=== PATIENT | male | born 2000 | race Hispanic/Latino ===

== ENCOUNTER 2024-05-19 00:42 | Emergency (ER) | payer OTHER, SELFPAY ==
[2024-05-19 01:01] VITALS: BP 119/72
--- NOTE | 2024-05-19 02:21 | ED.MUSCINJ ---
HPI-Injury
General
Chief Complaint: Musculo-Skeletal Complaint
Source: patient
Exam Limitations: none
Time Seen by Provider: 05/19/24 02:11
Nursing documentation reviewed up to this point in time: agreed with
History of Present Illness-Injury
Is this injury a work related problem?: No
Initial Injury comments:
This is a 24-year-old [id number] male with no significant past medical history who presents with pain proximal aspect of his left long digit when he inadvertently injured his finger 1 week ago while playing football. He admits to initially
moderate swelling and some bruising about the MCP joint of his long digit that has slowly improved.
He denies weakness or numbness.
No history of previous injuries to this finger.
Pain is worse with movement, improves with keeping his finger still.
Past History
Past History
ED Past Medical History: None
ED Past Surgical History: Urological (Testicular torsion)
Social History
Tobacco: Non-smoker
Personal: Single
Living: with family
Employment: Employed
Family History
Family History: Other (Noncontributory)
Musculoskeletal Injury Exam
Musculoskeletal Injury Exam
Left Proximal Third Finger:
Pain with Movement?: Mild
Tender to palpation?: Moderate
Soft tissue swelling?: Mild
External deformity and angulation?: None
Joint effusion?: None
Contusion?: Mild
Hematoma-local bleeding into tissue?: Mild
Strain- Sprain- Tear (Connective tissue injury)?: None
Crepitus with movement?: No
Joint instability?: No
Malalignment/deformity?: No
Range of motion: Limited (Mildly limited flexion at MCP joint related to pain.)
Distal skin color and temperature: normal-warm & good color
Capillary Refill: normal
Normal distal neurovascular exam?: Yes
Phy Exam
Physical Exam
Physical Exam:
PHYSICAL EXAMINATION:
General: 24-year-old male appears his stated age, bright and alert, pleasant, appears in no acute distress. Easily communicative.
Neuro: alert and oriented. no focal neurological deficits
Psychiatric: well kept. interactive and cooperative
Musculoskeletal: [Moderate tenderness about the MCP joint left third digit. Mild soft tissue swelling and minimal/resolving ecchymosis. Mildly restricted flexion at MCP joint related to pain. There is no tenderness to the
hand nor wrist. Peripheral pulses are full and equal bilaterally. Distal sensation and strength intact.]
Injury Course
Orders/Labs/Results
Orders:
Orders
05/19/24 01:04
Finger(s)/Thumb 2 View Lt [CR Finger(s)/thumb Min 2 Vw Lt] Urgent
Comment:
Reason For Exam: injury to mid finger playing football
Indicate Which Finger:: Middle Finger
05/19/24 02:21
Splints/Slings/Crut- Treatment ONCE
Crutches: No
Location: Left
Type of Splint: Volar
MDM/Problems Addressed
Differential Diagnosis Includes:
Concern for sprain versus fracture.
X-ray shows tiny nondisplaced fracture at the base of the proximal phalanx of the left long digit.
Will place in volar splint.
Will prescribe ibuprofen as needed for pain.
Will refer to orthopedics for follow-up.
*Radiology
Radiology exam reviewed: preliminary read by ED provider (X-ray shows nondisplaced fracture base of the proximal phalanx left long digit.)
*Pulse Oximetry
Patient hypoxic: no
*Critical Care Note
Total Time (30-74mins, 75-104mins- exclusive of procedures): Not Applicable
ED Attending Note
-
Portions of this chart may have been created with voice recognition software.� Occasional wrong word or��sound alike� substitutions may have occurred due to the inherent limitations of voice recognition software.
Discharge Plan
Departure
Patient Disposition: Home (Routine Discharge)
Date of Disposition: 05/19/24
Time of Disposition: 02:26
Patient with high blood pressure during this ER visit?: No
Condition: Good
Discharge Problem:
Finger fracture, left
Instructions: Finger Fracture ED, How to care for a splint
Prescriptions:
New
ibuprofen 600 mg tablet
600 mg PO QID PRN (Reason: fever or pain) Qty: 20 0RF
Referrals:
Ramsey Bustamante MD [Active] - Call in 1-3 days for appt
Interventions
Interventions:
*Risk Screen - Suicide Last Done: 05/19/24 01:01
*General Assessment Last Done: 05/19/24 03:04
*Neglect/Abuse Screening Last Done: 05/19/24 03:04
ED- Fall Risk Assessment Last Done: 05/19/24 02:08
*ED COVID-19 Vaccine History Last Done: 05/19/24 03:04
*Nursing Disposition Last Done: 05/19/24 03:32
ED-Musculoskeletal Assessment Last Done: 05/19/24 02:08
Discharge Date and Time
Discharge Date/Time: 05/19/24 03:32
Print Language: ROMANSH
[2024-05-19 03:02] VITALS: BP 118/54
== END 2024-05-19 03:32 | disposition home or self-care (01) ==
LOC: EMR 00:42
PROVIDERS: EMERGENCY PHYSICIAN Emergency Medicine
DX: S62.643A Nondisplaced fracture of proximal phalanx of left middle finger, initial encounter for closed fracture (principal); X58.XXXA Exposure to other specified factors, initial encounter; Y93.61 Activity, american tackle football
CPT/HCPCS: 29125; 99283; 73140